=== PATIENT | female | born 1990 | race Caucasian/White ===

== ENCOUNTER 2017-09-25 17:58 | Inpatient (IN) | payer OTHER ==
[2017-09-25] MEDS ORDERED: Sodium Chloride 0.9% 10 ML Syringe FLUSH PRN ×2 (18:35→19:33)
[2017-09-25] MEDS ORDERED: fentaNYL 100 MCG/2 ML SDV IVPUSH ONE (18:35)
[2017-09-25] MEDS ORDERED: Lactated Ringers 1,000 ML IV SCH ×2 (19:15→20:15)
[2017-09-25] MEDS ORDERED: ePHEDrine/Normal Saline 50 MG/5 ML Syringe ONE (19:24)
[2017-09-25] MEDS ORDERED: Ropivacaine 100 ML ONE (19:27)
[2017-09-25] MEDS ORDERED: Acetaminophen 325 MG Tab PO PRN (19:33)
[2017-09-25] MEDS ORDERED: Ondansetron 4 MG Tab.DIS PO PRN (19:33)
--- NOTE | 2017-09-25 19:43 | PCM.LDHP ---
L&D History of Present Illness - General Date of Service: 09/25/17 (active labor) Admit Problem/Dx: Patient Status Order with Admit Dx/Problem 09/25/17 19:33 Patient Status [ADT] Routine Admission Diagnosis/Problem Admission Diagnosis/Problem Source of Information: Patient History Limitations: Reports: No Limitations - History of Present Illness Introduction:: This 27 yr old who is 39 5/7 weeks gestation presented in active labor. Early labor started this morning about 0620. Over the course of the day the contractions increased and became regular about 1700 this evening. She presented to the hospital at about 1810. 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 Baseline FHT 150 with accelerations. Cat one strip. Contractions every 4-3 minutes CE:3/60/0. Requesting pain medication and would like an epidural Timing/Duration: Reports: minutes: (3-4) Location, : Reports: Abdomen, Lower back Quality: Reports: Pressure Severity: Severe Pain Score: 8 Improves with: Reports: None Worsens with: Reports: None - Related Data Allergies/Adverse Reactions: Allergies Allergy/AdvReac Type Severity Reaction Status Date / Time No Known Allergies Allergy Verified 08/03/14 17:52 Home Medications: Home Meds Omeprazole [priLOSEC OTC] 20 mg PO ASDIRECTED PRN 08/03/14 [History] Ascorbic Acid/Ascorbate Sodium [Vit C-Georgiana Hips 500 mg Chew Tb] 1,000 mg PO DAILY 07/19/17 [History] Calcium Carbonate [Tums Ultra Strength] 1,000 mg PO PRN 07/19/17 [History] Klp635/FA/Omega3/Dha/Fish Oil [ Gummies] 2 tab PO DAILY 07/19/17 [ History] Past Medical History [employer] History: Reports: : 2 Para: 1 LMP (Approximate): (APOORVA 09/27/17) Musculoskeletal History: Reports: Fracture Social & Family History - Family History Cardiac: Reports: Afib - Tobacco Use Smoking Status *Q: Never Smoker Second Hand Smoke Exposure: No - Alcohol Use Days Per Week of Alcohol Use: 0 - Recreational Drug Use Recreational Drug Use: No H&P Review of Systems - Review of Systems: Review Of Systems: See Below General: Reports: No Symptoms HEENT: Reports: No Symptoms Pulmonary: Reports: No Symptoms Cardiovascular: Reports: No Symptoms Gastrointestinal: Reports: No Symptoms Genitourinary: Reports: No Symptoms Musculoskeletal: Reports: No Symptoms Skin: Reports: No Symptoms Psychiatric: Reports: No Symptoms Neurological: Reports: No Symptoms Hematologic/Lymphatic: Reports: No Symptoms Immunologic: Reports: No Symptoms L&D Exam - Exam Exam: See Below - Vital Signs Weight: 239 lb - OB Specific Contraction Intensity: Strong Movement: Active Heart Tones: Present Heart Tones per Min: 150 Heart Rate (FHR) Variability: Moderate (6-25 bmp) Presentation: Vertex Estimated Weight: 7-8 pounds - Larson Score Larson Score Cervix Position: Midposition Larson Score Consistency: Soft Larson Score Effacement: 51-70% Larson Score Dilation: 1-2 cm Larson Score Infant's Station: -1 ,0 Larson Score Total: 8 - Exam General: Alert, Oriented HEENT: PERRLA Neck: Supple Lungs: Normal Respiratory Effort Cardiovascular: Regular Rate, Regular Rhythm GI/Abdominal Exam: Soft, Non-Tender Genitourinary: Cervical dilitation, Enlarged uterus Extremities: Normal Inspection, No Pedal Edema Skin: Warm Neurological: Cranial Nerves Intact, Reflexes Equal Bilateral Psychiatric: Alert - Patient Data Lab Results Last 24 hrs: Laboratory Results - last 24 hr 09/25/17 09/25/17 Range/Units 18:12 19:09 WBC 12.5 H (4.5-11.0) K/uL RBC 4.77 (3.30-5.50) M/uL Hgb 12.8 (12.0-15.0) g/dL Hct 38.8 (36.0-48.0) % MCV 81 (80-98) fL MCH 27 (27-31) pg MCHC 33 (32-36) % Plt Count 263 (150-400) K/uL Neut % (Auto) 74 H (36-66) % Lymph % (Auto) 15 L (24-44) % [place] % (Auto) 10 H (2-6) % Eos % (Auto) 1 L (2-4) % Baso % (Auto) 0 (0-1) % Urine Color Yellow Urine Appearance Cloudy Urine pH 6.0 (4.5-8.0) Ur Specific [place] 1.020 (1.008-1.030) Urine Protein Negative (NEGATIVE) mg/dL Urine Glucose (UA) Normal (NEGATIVE) mg/dL Urine Ketones Negative (NEGATIVE) mg/dL Urine Occult Blood Negative (NEGATIVE) Urine Nitrite Negative (NEGATIVE) Urine Bilirubin Negative (NEGATIVE) Urine Urobilinogen 1 (NORMAL) mg/dL Ur Leukocyte Esterase Negative (NEGATIVE) Urine RBC 0-5 (0-5) Urine WBC 5-10 H (0-5) Ur Epithelial Cells Moderate Amorphous Sediment Not seen Urine Bacteria Many Urine Mucus Moderate Result Diagrams: 09/25/17 19:09 - Problem List (1) Active labor at term SNOMED Code(s): 13565569 ICD Code: [id number] - Status: Acute Current Visit: Yes (2) SNOMED Code(s): 69595113 ICD Code: Z34.90 - ENCNTR FOR SUPRVSN OF NORMAL , UNSP, UNSP TRIMESTER Status: Acute Current Visit: Yes Qualifiers: Weeks of gestation: 39 weeks Qualified Code(s): Z3A.39 - 39 weeks gestation of Problem List Initiated/Reviewed/Updated: Yes Orders Last 24hrs: Active Orders 24 hr Category Date Time Status Patient Status [ADT] Routine ADT 09/25/17 19:33 Ordered Antiembolic Devices [RC] .Routine Care 09/25/17 19:36 Ordered Communication Order [RC] ASDIRECTED Care 09/25/17 19:33 Ordered Heart Tones [RC] PER UNIT ROUTINE Care 09/25/17 19:33 Ordered May Shower [RC] ASDIRECTED Care 09/25/17 19:33 Ordered Notify Provider Vital Signs [RC] PRN Care 09/25/17 19:33 Ordered Notify Provider [RC] PRN Care 09/25/17 19:33 Ordered OB Check [OM.PC] Click to Edit Care 09/25/17 18:07 Ordered Peripheral IV Care [RC] . DIRECTED Care 09/25/17 18:36 Active VTE/DVT Education [RC] Click to Edit Care 09/25/17 19:36 Ordered Vital Signs [RC] PER UNIT ROUTINE Care 09/25/17 19:33 Ordered Regular Diet [DIET] Diet 09/26/17 Breakfast Ordered DRUG SCREEN, URINE [URCHEM] Routine Lab 09/25/17 18:37 Uncollected Acetaminophen [Tylenol] Med 09/25/17 19:33 Ordered 650 mg PO Q4H PRN Lactated Ringers [Ringers, Lactated] 1,000 ml Med 09/25/17 19:15 Active IV ASDIRECTED Ondansetron [Zofran ODT] Med 09/25/17 19:33 Ordered 4 mg PO Q4H PRN Oxytocin/Normal Saline [Pitocin in NS 20 Units/1,000 ML Med 09/25/17 19:37 Ordered ] 20 unit in 1,000 ml IV ONETIME Sodium Chloride 0.9% [Saline Flush] Med 09/25/17 18:35 Active 10 ml FLUSH ASDIRECTED PRN Sodium Chloride 0.9% [Saline Flush] Med 09/25/17 19:33 Ordered 10 ml FLUSH ASDIRECTED PRN DVT/VTE Prophylaxis Reflex [OM.PC] Routine Oth 09/25/17 19:33 Ordered Peripheral IV Insertion Adult [OM.PC] Routine Oth 09/25/17 18:35 Ordered Saline Lock Insert [OM.PC] Routine Oth 09/25/17 19:33 Ordered Resuscitation Status Routine Resus Stat 09/25/17 19:33 Ordered Medication Orders Acetaminophen (Tylenol) 650 mg PO Q4H PRN PRN Reason: Pain (Mild 1-3) and fever Lactated Ringer's (Ringers, Lactated) 1,000 mls @ 999 mls/hr IV ASDIRECTED JULIO Last Admin: 09/25/17 19:12 Dose: 999 mls/hr Oxytocin/Sodium Chloride (Pitocin In Ns 20 Units/1,000 Ml) 20 unit in 1,000 mls @ 999 mls/hr IV ONETIME ONE PRN Reason: Protocol Stop: 09/25/17 20:37 Ondansetron HCl (Zofran Odt) 4 mg PO Q4H PRN PRN Reason: Nausea/Vomiting Sodium Chloride (Saline Flush) 10 ml FLUSH ASDIRECTED PRN PRN Reason: Keep Vein Open Sodium Chloride (Saline Flush) 10 ml FLUSH ASDIRECTED PRN PRN Reason: Keep Vein Open Assessment/Plan Comment:: 27 yr old active labor at 39 5/7 weeks Plan: epidural for pain AROM Plan for vaginal delivery Lab: HIV neg Rubella immune RPR NR GBS neg HGB 12.8 PLT 263
--- NOTE | 2017-09-25 20:21 | PCM.PNLD ---
Labor Progress Note - VS & Meds Vital Signs: Last Vital Signs Temp 97.9 F 09/25/17 19:49 Pulse 91 09/25/17 20:07 Resp 16 09/25/17 20:07 BP 121/71 09/25/17 20:07 Pulse Ox 99 09/25/17 20:07 Active Medications: Current Medications Acetaminophen (Tylenol) 650 mg PO Q4H PRN PRN Reason: Pain (Mild 1-3) and fever Oxytocin/Sodium Chloride (Pitocin In Ns 20 Units/1,000 Ml) 20 unit in 1,000 mls @ 999 mls/hr IV ONETIME ONE PRN Reason: Protocol Stop: 09/25/17 20:37 Lactated Ringer's (Ringers, Lactated) 1,000 mls @ 100 mls/hr IV ASDIRECTED [facility] Ondansetron HCl (Zofran Odt) 4 mg PO Q4H PRN PRN Reason: Nausea/Vomiting Sodium Chloride (Saline Flush) 10 ml FLUSH ASDIRECTED PRN PRN Reason: Keep Vein Open Sodium Chloride (Saline Flush) 10 ml FLUSH ASDIRECTED PRN PRN Reason: Keep Vein Open Discontinued Medications Ephedrine Sulfate (Ephedrine In Ns) Confirm Administered Dose 50 mg .ROUTE .STK- MED ONE Stop: 09/25/17 19:25 Fentanyl (Sublimaze) 100 mcg IVPUSH ONETIME ONE Stop: 09/25/17 18:36 Last Admin: 09/25/17 19:08 Dose: 100 mcg Lactated Ringer's (Ringers, Lactated) 1,000 mls @ 999 mls/hr IV ASDIRECTED [facility] Last Admin: 09/25/17 19:12 Dose: 999 mls/hr Ropivacaine (Naropin 0.2%) Confirm Administered Dose 100 mls @ as directed .ROUTE .STK-MED ONE Stop: 09/25/17 19:28 - Uterine Contractions Uterine Monitoring Mode: External [place] Contraction Intensity: Strong Uterine Resting Tone: Soft - Monitoring Monitor Mode: Doppler/Auscultation Heart Rate (FHR) Baseline: 150 Heart Rate (FHR) Variability: Moderate (6-25 bmp) Accelerations: Present, 15x15 Decelerations: None Strip Review: Category I - Vaginal Exam Dilation (cm): 5 Effacement (Percent): 100 Station: 0 Cervical Position: Anterior Sterile Vaginal Exam Performed By: Nellie Tavarez Vaginal Exam Comment: SROM yellowish fluid - Labor Progress (Free Text) Labor Progress: epidural and yang in. Feeling much better, now to rest and plan for delivery this evening.
[2017-09-25] MEDS ORDERED: Ropivacaine 100 ML EPIDUR SCH (21:54)
[2017-09-25] MEDS ORDERED: ePHEDrine/Normal Saline 50 MG/5 ML Syringe IVPUSH PRN (21:54)
[2017-09-25] MEDS ORDERED: Naloxone 0.4 MG/ML SDV IVPUSH PRN (21:54)
[2017-09-25] MEDS ORDERED: Lanolin 100% Cream 40 GM Tube TOP PRN (23:31)
[2017-09-25] MEDS ORDERED: Ibuprofen 600 MG Tab PO PRN (23:31)
--- NOTE | 2017-09-25 23:43 | ANES ---
DATE OF SERVICE: 09/25/2017 TIME: 1930 hours. I was called by Nellie Tavarez to the Labor and Delivery Unit to evaluate Ms. Bauman for a labor epidural. She is 39 weeks and this is her 2nd baby and she is approximately 4 cm. The risks and benefits of the procedure were explained to the patient. She wished to proceed with labor epidural. She was placed in a sitting position. Her back was prepped x3 with Betadine, 1% lidocaine skin local was used. The epidural was placed at L3-4 using a 17- gauge Tuohy needle in loss of resistance technique. The epidural had very good feel throughout and the epidural space was easily identified. There was negative CSF, negative blood, and negative paresthesias noted. Therefore, a catheter was threaded to 14 cm at the skin. There was negative CSF, negative blood, and negative paresthesias noted in the catheter. A 1.5% lidocaine test dose with epinephrine was given and this test dose was negative. The catheter was then secured with Tegaderm and tape, and the patient was placed in a supine position. A 0.2% ropivacaine bolus of 12 mL was given and this bolus had very good results. Therefore, a 0.2% ropivacaine drip was started at 12 mL/h. Her vital signs remained stable throughout the procedure and nurse was with me the entire procedure. There were no anesthesia complications noted. We will continue to monitor her throughout her Labor and Delivery stay. Brian Bang CRNA /[id number]
--- NOTE | 2017-09-25 23:46 | PCM.DEL ---
L & D Note - General Info Date of Service: 09/25/17 (delivery) Mother's Due Date: 09/27/17 - Delivery Note Labor: Spontaneous Delivery Outcome: Livebirth Infant Delivery Method: Spontaneous Vaginal Delivery-Single Infant Delivery Mode: Spontaneous Presentation: Left Occiput Anterior (KIT) Nuchal Cord: None (had a true knot in the cord) Anesthesia Type: Epidural Amniotic Fluid Description: Meconium Stained Episiotomy Type: None Laceration: 1st Degree, Perineal, Periurethral Suture type: Chromic Suture size: 3-0 Placenta: Intact, Spontaneous, Meconium Stained Cord: 3 Vessels, True Knot Estimated Blood Loss: 200 Resuscitation Needed: No United: Bulb Syringe, Stimulated, Warmed, [place] Used Provider: Nellie Tavarez Score 1 min: 8 (one for color one for tone) Score 5 min: 9 (one for color) Second Stage Interventions: Reports: Second Nurse Reviewed Heart Tones, Pushing Effectively, Pushing, McRobert's Position, Pushing, Squat Bar Pulling on Sheet Delivery Comments (Free Text/Narrative):: This 27 year old G2 now P2 who is 39 5/7 weeks delivered a viable female infant at 2302 via over an intact perineum in KIT position. Mother pulled just over an hour making slow steady progress. Fluid was meconium stained. United was delivered on to mother's abdomen where she was dried and stimulated. She cried spontaneously and was bulb suctioned. Apgars of 8 and 9, color tone for the one minute and color for the 5 minute. Three vessel cord and a true knot in the cord. The placenta was expressed spontaneously intact. There was a small perineal tear that required three sutures and a periuretheral tear that was bleeding and required two sutures. No lacerations of the cervix, rectum or vagina were found. EBL 200cc Mother and baby to post and nursery in stable condition weight 9 pounds first stage [id number] Second stage 7413-5917 Third stage 9591-9192 - General Info Date of Service: 09/25/17 Admission Dx/Problem (Free Text): Patient Status Order with Admit Dx/Problem 09/25/17 19:33 Patient Status [ADT] Routine Admission Diagnosis/Problem Admission Diagnosis/Problem Functional Status: Reports: Pain Controlled - Review of Systems General: Reports: No Symptoms HEENT: Reports: No Symptoms Pulmonary: Reports: No Symptoms Cardiovascular: Reports: No Symptoms Gastrointestinal: Reports: No Symptoms Genitourinary: Reports: No Symptoms Musculoskeletal: Reports: No Symptoms Skin: Reports: No Symptoms Neurological: Reports: No Symptoms Psychiatric: Reports: No Symptoms - Patient Data Vitals - Most Recent: Last Vital Signs Temp 98.3 F 09/25/17 21:58 Pulse 100 09/25/17 21:58 Resp 18 09/25/17 21:58 BP 127/77 09/25/17 21:58 Pulse Ox 99 09/25/17 21:58 Weight - Most Recent: 246 lb Lab Results Last 24 Hours: Laboratory Results - last 24 hr 09/25/17 09/25/17 09/25/17 Range/Units 18:12 19:09 20:40 WBC 12.5 H (4.5-11.0) K/uL RBC 4.77 (3.30-5.50) M/uL Hgb 12.8 (12.0-15.0) g/dL Hct 38.8 (36.0-48.0) % MCV 81 (80-98) fL MCH 27 (27-31) pg MCHC 33 (32-36) % Plt Count 263 (150-400) K/uL Neut % (Auto) 74 H (36-66) % Lymph % (Auto) 15 L (24-44) % [place] % (Auto) 10 H (2-6) % Eos % (Auto) 1 L (2-4) % Baso % (Auto) 0 (0-1) % Urine Color Yellow Urine Appearance Cloudy Urine pH 6.0 (4.5-8.0) Ur Specific [place] 1.020 (1.008-1.030) Urine Protein Negative (NEGATIVE) mg/dL Urine Glucose (UA) Normal (NEGATIVE) mg/dL Urine Ketones Negative (NEGATIVE) mg/dL Urine Occult Blood Negative (NEGATIVE) Urine Nitrite Negative (NEGATIVE) Urine Bilirubin Negative (NEGATIVE) Urine Urobilinogen 1 (NORMAL) mg/dL Ur Leukocyte Esterase Negative (NEGATIVE) Urine RBC 0-5 (0-5) Urine WBC 5-10 H (0-5) Ur Epithelial Cells Moderate Amorphous Sediment Not seen Urine Bacteria Many Urine Mucus Moderate Urine Opiates Screen Negative (NEGATIVE) Ur Oxycodone Screen Negative (NEGATIVE) Urine Methadone Screen Negative (NEGATIVE) Ur Propoxyphene Screen Negative (NEGATIVE) Ur Barbiturates Screen Negative (NEGATIVE) Ur Tricyclics Screen Negative (NEGATIVE) Ur Phencyclidine Scrn Negative (NEGATIVE) Ur Amphetamine Screen Negative (NEGATIVE) U Methamphetamines Scrn Negative (NEGATIVE) Urine MDMA Screen Negative (NEGATIVE) U Benzodiazepines Scrn Negative (NEGATIVE) U Cocaine Metab Screen Negative (NEGATIVE) U Marijuana (THC) Screen Negative (NEGATIVE) Med Orders - Current: Current Medications Acetaminophen (Tylenol) 650 mg PO Q4H PRN PRN Reason: Pain (Mild 1-3) and fever Ephedrine Sulfate (Ephedrine In Ns) 5 - 10 mg IVPUSH ASDIRECTED PRN PRN Reason: SYSTOLIC BP LESS THAN 100 Lactated Ringer's (Ringers, Lactated) 1,000 mls @ 100 mls/hr IV ASDIRECTED JULIO Last Admin: 09/25/17 21:10 Dose: 100 mls/hr Ropivacaine (Naropin 0.2%) 100 mls @ 5 mls/hr EPIDUR ASDIRECTED JULIO; Titrate PRN Reason: Protocol Naloxone HCl (Narcan) 0.1 mg IVPUSH Q5M PRN PRN Reason: IF RESP RATE LESS THAN 6 Ondansetron HCl (Zofran Odt) 4 mg PO Q4H PRN PRN Reason: Nausea/Vomiting Sodium Chloride (Saline Flush) 10 ml FLUSH ASDIRECTED PRN PRN Reason: Keep Vein Open Sodium Chloride (Saline Flush) 10 ml FLUSH ASDIRECTED PRN PRN Reason: Keep Vein Open Discontinued Medications Ephedrine Sulfate (Ephedrine In Ns) Confirm Administered Dose 50 mg .ROUTE .STK- MED ONE Stop: 09/25/17 19:25 Last Admin: 09/25/17 21:20 Dose: Not Given Fentanyl (Sublimaze) 100 mcg IVPUSH ONETIME ONE Stop: 09/25/17 18:36 Last Admin: 09/25/17 19:08 Dose: 100 mcg Lactated Ringer's (Ringers, Lactated) 1,000 mls @ 999 mls/hr IV ASDIRECTED JULIO Last Admin: 09/25/17 19:12 Dose: 999 mls/hr Ropivacaine (Naropin 0.2%) Confirm Administered Dose 100 mls @ as directed .ROUTE .STK-MED ONE Stop: 09/25/17 19:28 Oxytocin/Sodium Chloride (Pitocin In Ns 20 Units/1,000 Ml) 20 unit in 1,000 mls @ 999 mls/hr IV ONETIME ONE PRN Reason: Protocol Stop: 09/25/17 20:37 - Exam General: Alert, Oriented HEENT: Pupils Equal Neck: Supple Lungs: Normal Respiratory Effort Cardiovascular: Regular Rate, Regular Rhythm GI/Abdominal Exam: Soft, Non-Tender (Female) Exam: Cervical Dilatation, Enlarged Uterus, Vaginal Bleeding Back Exam: Normal Inspection Extremities: Normal Inspection Skin: Warm Neurological: No New Focal Deficit Psy/Mental Status: Alert, Normal Affect, Normal Mood - Problem List & Annotations (1) Active labor at term SNOMED Code(s): 15084780 Code(s): LQM0362 - Status: Acute Current Visit: Yes (2) SNOMED Code(s): 35754845 Code(s): Z34.90 - ENCNTR FOR SUPRVSN OF NORMAL , UNSP, UNSP TRIMESTER Status: Acute Current Visit: Yes Qualifiers: Weeks of gestation: 39 weeks Qualified Code(s): Z3A.39 - 39 weeks gestation of (3) Normal (single liveborn) SNOMED Code(s): 76450787 Code(s): Z38.2 - SINGLE LIVEBORN , UNSPECIFIED TO PLACE OF Status: Acute Current Visit: Yes (4) Normal labor and delivery SNOMED Code(s): 80996199 Code(s): O80 - ENCOUNTER FOR FULL-TERM UNCOMPLICATED DELIVERY Status: Acute Current Visit: Yes - Problem List Review Problem List Initiated/Reviewed/Updated: Yes - My Orders Last 24 Hours: My Active Orders 09/25/17 18:07 OB Check [OM.PC] Click to Edit 09/25/17 18:35 Sodium Chloride 0.9% [Saline Flush] 10 ml FLUSH ASDIRECTED PRN Peripheral IV Insertion Adult [OM.PC] Routine 09/25/17 18:36 Peripheral IV Care [RC] . DIRECTED 09/25/17 19:33 Communication Order [RC] ASDIRECTED Heart Tones [RC] PER UNIT ROUTINE May Shower [RC] ASDIRECTED Notify Provider Vital Signs [RC] PRN Notify Provider [RC] PRN Vital Signs [RC] PER UNIT ROUTINE Acetaminophen [Tylenol] 650 mg PO Q4H PRN Ondansetron [Zofran ODT] 4 mg PO Q4H PRN Sodium Chloride 0.9% [Saline Flush] 10 ml FLUSH ASDIRECTED PRN DVT/VTE Prophylaxis Reflex [OM.PC] Routine Saline Lock Insert [OM.PC] Routine Resuscitation Status Routine 09/25/17 19:35 Urinary Catheter Insertion [Insert Urinary Catheter] [OM.PC] Q24H 09/25/17 19:36 Antiembolic Devices [RC] .Routine VTE/DVT Education [RC] Click to Edit 09/25/17 20:18 Urinary Catheter Assessment [RC] ASDIRECTED 09/25/17 23:31 Patient Status [ADT] Routine Up ad [place] [RC] ASDIRECTED Vital Signs [RC] PFP Ibuprofen [Motrin] 600 mg PO Q6H PRN Lanolin [Lansinoh HPA] 1 gm TOP ASDIRECTED PRN Assess Lochia [WOMSER] Per Unit Routine Assess Uterine Involution [WOMSER] Per Unit Routine 09/25/17 23:32 Ice Therapy [OM.PC] Per Unit Routine Peripheral IV Discontinue [OM.PC] Routine Sitz Bath [OM.PC] Per Unit Routine 09/26/17 05:11 CBC WITH AUTO DIFF [HEME] AM 09/26/17 Breakfast Regular Diet [DIET] - Assessment Assessment:: 08/25/18 27 year old without complications true knot of cord meconium fluid Rubella immune GBS negative HIV negative ABO O pos HGB on admission 12.8 - Plan Plan:: 27 yr old active labor at 39 5/7 weeks Plan: epidural for pain AROM Plan for vaginal delivery Lab: HIV neg Rubella immune RPR NR GBS neg HGB 12.8 PLT 263 08/25/18 Routine cares support Home 24-48 hours. CBC in am
[2017-09-26] MEDS ORDERED: Ibuprofen 200 MG Tab, 24 Tab Bulk Bottle PO PRN (07:53)
[2017-09-26] MEDS ORDERED: Acetaminophen 325 MG Tab, 50 Tab Bulk Bottle PO PRN (07:56)
--- NOTE | 2017-09-26 08:33 | PCM.PNPP ---
- General Info Date of Service: 09/26/17 (PPD 1) Admission Dx/Problem (Free Text): Patient Status Order with Admit Dx/Problem 09/25/17 19:33 Patient Status [ADT] Routine Admission Diagnosis/Problem Admission Diagnosis/Problem Functional Status: Reports: Pain Controlled - Review of Systems General: Reports: No Symptoms HEENT: Reports: No Symptoms Pulmonary: Reports: No Symptoms Cardiovascular: Reports: No Symptoms Gastrointestinal: Reports: No Symptoms Genitourinary: Reports: No Symptoms Musculoskeletal: Reports: No Symptoms Skin: Reports: No Symptoms Neurological: Reports: No Symptoms Psychiatric: Reports: No Symptoms - Patient Data Vital Signs - Most Recent: Last Vital Signs Temp 98.8 F 09/26/17 04:30 Pulse 98 09/26/17 04:30 Resp 16 09/26/17 04:30 BP 141/61 H 09/26/17 04:30 Pulse Ox 95 09/26/17 04:30 Weight - Most Recent: 246 lb I&O - Last 24 Hours: Intake & Output 09/25/17 09/26/17 09/26/17 22:59 06:59 14:59 Intake Total 2492 Balance 2492 Lab Results - Last 24 Hours: Laboratory Results - last 24 hr 09/25/17 09/25/17 09/25/17 Range/Units 18:12 19:09 20:40 WBC 12.5 H (4.5-11.0) K/uL RBC 4.77 (3.30-5.50) M/uL Hgb 12.8 (12.0-15.0) g/dL Hct 38.8 (36.0-48.0) % MCV 81 (80-98) fL MCH 27 (27-31) pg MCHC 33 (32-36) % Plt Count 263 (150-400) K/uL Neut % (Auto) 74 H (36-66) % Lymph % (Auto) 15 L (24-44) % [place] % (Auto) 10 H (2-6) % Eos % (Auto) 1 L (2-4) % Baso % (Auto) 0 (0-1) % Urine Color Yellow Urine Appearance Cloudy Urine pH 6.0 (4.5-8.0) Ur Specific [place] 1.020 (1.008-1.030) Urine Protein Negative (NEGATIVE) mg/dL Urine Glucose (UA) Normal (NEGATIVE) mg/dL Urine Ketones Negative (NEGATIVE) mg/dL Urine Occult Blood Negative (NEGATIVE) Urine Nitrite Negative (NEGATIVE) Urine Bilirubin Negative (NEGATIVE) Urine Urobilinogen 1 (NORMAL) mg/dL Ur Leukocyte Esterase Negative (NEGATIVE) Urine RBC 0-5 (0-5) Urine WBC 5-10 H (0-5) Ur Epithelial Cells Moderate Amorphous Sediment Not seen Urine Bacteria Many Urine Mucus Moderate Urine Opiates Screen Negative (NEGATIVE) Ur Oxycodone Screen Negative (NEGATIVE) Urine Methadone Screen Negative (NEGATIVE) Ur Propoxyphene Screen Negative (NEGATIVE) Ur Barbiturates Screen Negative (NEGATIVE) Ur Tricyclics Screen Negative (NEGATIVE) Ur Phencyclidine Scrn Negative (NEGATIVE) Ur Amphetamine Screen Negative (NEGATIVE) U Methamphetamines Scrn Negative (NEGATIVE) Urine MDMA Screen Negative (NEGATIVE) U Benzodiazepines Scrn Negative (NEGATIVE) U Cocaine Metab Screen Negative (NEGATIVE) U Marijuana (THC) Screen Negative (NEGATIVE) 09/26/17 Range/Units 05:45 WBC 15.6 H (4.5-11.0) K/uL RBC 4.45 (3.30-5.50) M/uL Hgb 11.8 L (12.0-15.0) g/dL Hct 36.4 (36.0-48.0) % MCV 82 (80-98) fL MCH 27 (27-31) pg MCHC 32 (32-36) % Plt Count 243 (150-400) K/uL Neut % (Auto) 76 H (36-66) % Lymph % (Auto) 14 L (24-44) % [place] % (Auto) 9 H (2-6) % Eos % (Auto) 0 L (2-4) % Baso % (Auto) 0 (0-1) % Urine Color Urine Appearance Urine pH (4.5-8.0) Ur Specific [place] (1.008-1.030) Urine Protein (NEGATIVE) mg/dL Urine Glucose (UA) (NEGATIVE) mg/dL Urine Ketones (NEGATIVE) mg/dL Urine Occult Blood (NEGATIVE) Urine Nitrite (NEGATIVE) Urine Bilirubin (NEGATIVE) Urine Urobilinogen (NORMAL) mg/dL Ur Leukocyte Esterase (NEGATIVE) Urine RBC (0-5) Urine WBC (0-5) Ur Epithelial Cells Amorphous Sediment Urine Bacteria Urine Mucus Urine Opiates Screen (NEGATIVE) Ur Oxycodone Screen (NEGATIVE) Urine Methadone Screen (NEGATIVE) Ur Propoxyphene Screen (NEGATIVE) Ur Barbiturates Screen (NEGATIVE) Ur Tricyclics Screen (NEGATIVE) Ur Phencyclidine Scrn (NEGATIVE) Ur Amphetamine Screen (NEGATIVE) U Methamphetamines Scrn (NEGATIVE) Urine MDMA Screen (NEGATIVE) U Benzodiazepines Scrn (NEGATIVE) U Cocaine Metab Screen (NEGATIVE) U Marijuana (THC) Screen (NEGATIVE) Med Orders - Current: Current Medications Acetaminophen (Tylenol Bulk Bottle) 650 mg PO Q4H PRN PRN Reason: Pain Emollient Ointment (Lansinoh Hpa) 1 gm TOP ASDIRECTED PRN PRN Reason: Sore Nipples Ibuprofen (Motrin Bulk Bottle) 200 mg PO Q6H PRN PRN Reason: Pain Ondansetron HCl (Zofran Odt) 4 mg PO Q4H PRN PRN Reason: Nausea/Vomiting Sodium Chloride (Saline Flush) 10 ml FLUSH ASDIRECTED PRN PRN Reason: Keep Vein Open Sodium Chloride (Saline Flush) 10 ml FLUSH ASDIRECTED PRN PRN Reason: Keep Vein Open Discontinued Medications Acetaminophen (Tylenol) 650 mg PO Q4H PRN PRN Reason: Pain (Mild 1-3) and fever Ephedrine Sulfate (Ephedrine In Ns) Confirm Administered Dose 50 mg .ROUTE .STK- MED ONE Stop: 09/25/17 19:25 Last Admin: 09/25/17 21:20 Dose: Not Given Ephedrine Sulfate (Ephedrine In Ns) 5 - 10 mg IVPUSH ASDIRECTED PRN PRN Reason: SYSTOLIC BP LESS THAN 100 Fentanyl (Sublimaze) 100 mcg IVPUSH ONETIME ONE Stop: 09/25/17 18:36 Last Admin: 09/25/17 19:08 Dose: 100 mcg Lactated Ringer's (Ringers, Lactated) 1,000 mls @ 999 mls/hr IV ASDIRECTED JULIO Last Admin: 09/25/17 19:12 Dose: 999 mls/hr Ropivacaine (Naropin 0.2%) Confirm Administered Dose 100 mls @ as directed .ROUTE .STK-MED ONE Stop: 09/25/17 19:28 Oxytocin/Sodium Chloride (Pitocin In Ns 20 Units/1,000 Ml) 20 unit in 1,000 mls @ 999 mls/hr IV ONETIME ONE PRN Reason: Protocol Stop: 09/25/17 20:37 Last Admin: 09/25/17 23:05 Dose: 999 ml/hr, 999 mls/hr Lactated Ringer's (Ringers, Lactated) 1,000 mls @ 100 mls/hr IV ASDIRECTED [facility] Last Admin: 09/25/17 21:10 Dose: 100 mls/hr Ropivacaine (Naropin 0.2%) 100 mls @ 5 mls/hr EPIDUR ASDIRECTED [facility]; Titrate PRN Reason: Protocol Last Admin: 09/25/17 19:50 Dose: 12 ml/hr, 12 mls/hr Ibuprofen (Motrin) 600 mg PO Q6H PRN PRN Reason: mild pain or fever Last Admin: 09/26/17 00:41 Dose: 600 mg Naloxone HCl (Narcan) 0.1 mg IVPUSH Q5M PRN PRN Reason: IF RESP RATE LESS THAN 6 - Infant Interaction Infant Disposition, : [place] in Room with Family Interaction: Holding Infant Infant Feeding: Breastfed ; Nursed Well Support Person: Significant Other - Recovery Exam Fundal Tone: Firm Fundal Level: 2 Fingerbreadths Above Umbilicus Fundal Placement: Midline Lochia Amount: Moderate Lochia Color: Rubra/Red Perineum Description: Edematous Episiotomy/Laceration: Approximated Bladder Status: Nonpalpable Urinary Elimination: Voided - Exam General: Alert, Oriented HEENT: Pupils Equal Neck: Supple Lungs: Clear to Auscultation, Normal Respiratory Effort Cardiovascular: Regular Rate, Regular Rhythm GI/Abdominal Exam: Normal Bowel Sounds, Soft, Non-Tender, No Organomegaly, No Distention, No Abnormal Bruit, No Mass, Pelvis Stable Extremities: Normal Inspection, Normal Range of Motion, Non-Tender, No Pedal Edema, Normal Capillary Refill Skin: Warm, Dry, Intact Wound/Incisions: Healing Well Neurological: No New Focal Deficit Psy/Mental Status: Alert, Normal Affect, Normal Mood - Problem List & Annotations (1) Active labor at term SNOMED Code(s): 71940081 Code(s): ECP7142 - Status: Acute Current Visit: Yes (2) SNOMED Code(s): 80911063 Code(s): Z34.90 - ENCNTR FOR SUPRVSN OF NORMAL , UNSP, UNSP TRIMESTER Status: Acute Current Visit: Yes Qualifiers: Weeks of gestation: 39 weeks Qualified Code(s): Z3A.39 - 39 weeks gestation of (3) Normal (single liveborn) SNOMED Code(s): 81009454 Code(s): Z38.2 - SINGLE LIVEBORN , UNSPECIFIED TO PLACE OF Status: Acute Current Visit: Yes (4) Normal labor and delivery SNOMED Code(s): 75315884 Code(s): O80 - ENCOUNTER FOR FULL-TERM UNCOMPLICATED DELIVERY Status: Acute Current Visit: Yes - Problem List Review Problem List Initiated/Reviewed/Updated: Yes - My Orders Last 24 Hours: My Active Orders 09/25/17 18:07 OB Check [OM.PC] Click To Edit 09/25/17 18:35 Sodium Chloride 0.9% [Saline Flush] 10 ml FLUSH ASDIRECTED PRN Peripheral IV Insertion Adult [OM.PC] Routine 09/25/17 18:36 Peripheral IV Care [RC] . DIRECTED 09/25/17 19:33 May Shower [RC] ASDIRECTED Notify Provider Vital Signs [RC] PRN Notify Provider [RC] PRN Vital Signs [RC] PER UNIT ROUTINE Ondansetron [Zofran ODT] 4 mg PO Q4H PRN Sodium Chloride 0.9% [Saline Flush] 10 ml FLUSH ASDIRECTED PRN DVT/VTE Prophylaxis Reflex [OM.PC] Routine Saline Lock Insert [OM.PC] Routine Resuscitation Status Routine 09/25/17 19:35 Urinary Catheter Insertion [Insert Urinary Catheter] [OM.PC] Q24H 09/25/17 19:36 Antiembolic Devices [RC] .Routine VTE/DVT Education [RC] Click to Edit 09/25/17 20:18 Urinary Catheter Assessment [RC] ASDIRECTED 09/25/17 23:31 Patient Status [ADT] Routine Up ad [place] [RC] ASDIRECTED Lanolin [Lansinoh HPA] 1 gm TOP ASDIRECTED PRN Assess Lochia [WOMSER] Per Unit Routine Assess Uterine Involution [WOMSER] Per Unit Routine 09/25/17 23:32 Ice Therapy [OM.PC] Per Unit Routine Peripheral IV Discontinue [OM.PC] Routine Sitz Bath [OM.PC] Per Unit Routine 09/26/17 07:53 Ibuprofen [Motrin Bulk Bottle] 200 mg PO Q6H PRN 09/26/17 07:56 Acetaminophen [Tylenol Bulk Bottle] 650 mg PO Q4H PRN 09/26/17 Breakfast Regular Diet [DIET] - Assessment Assessment:: 08/25/18 27 year old without complications true knot of cord meconium fluid Rubella immune GBS negative HIV negative ABO O pos HGB on admission 12.8 08/26/18 Doing well this morning, no problems Bleeding moderate, no clots well Mood good HGB 11.8 - Plan Plan:: 27 yr old active labor at 39 5/7 weeks Plan: epidural for pain AROM Plan for vaginal delivery Lab: HIV neg Rubella immune RPR NR GBS neg HGB 12.8 PLT 263 09/25/17 Routine cares support Home 24-48 hours. CBC in am 09/26/17 Continue routine cares Home tomorrow
[2017-09-26] MEDS ORDERED: Docusate Sodium 100 MG Cap PO PRN (10:12)
[2017-09-27 07:11] VITALS: BP 131/81
--- NOTE | 2017-09-27 08:30 | PCM.PNPP ---
- General Info Date of Service: 09/27/17 Functional Status: Reports: Pain Controlled - Review of Systems General: Reports: No Symptoms HEENT: Reports: No Symptoms Pulmonary: Reports: No Symptoms Cardiovascular: Reports: No Symptoms Gastrointestinal: Reports: No Symptoms Genitourinary: Reports: No Symptoms Musculoskeletal: Reports: No Symptoms Skin: Reports: No Symptoms Neurological: Reports: No Symptoms Psychiatric: Reports: No Symptoms - General Info Date of Service: 09/27/17 - Patient Data Vital Signs - Most Recent: Last Vital Signs Temp 36.9 C 09/27/17 07:09 Pulse 92 09/27/17 07:09 Resp 16 09/27/17 07:09 BP 131/81 09/27/17 07:09 Pulse Ox 99 09/27/17 07:09 Weight - Most Recent: 111.584 kg Med Orders - Current: Current Medications Acetaminophen (Tylenol Bulk Bottle) 650 mg PO Q4H PRN PRN Reason: Pain Last Admin: 09/26/17 08:39 Dose: 1 bottle Docusate Sodium (Colace) 100 mg PO DAILY PRN PRN Reason: Constipation Last Admin: 09/26/17 11:15 Dose: 100 mg Emollient Ointment (Lansinoh Hpa) 1 gm TOP ASDIRECTED PRN PRN Reason: Sore Nipples Last Admin: 09/26/17 08:40 Dose: 1 tube Ibuprofen (Motrin Bulk Bottle) 200 mg PO Q6H PRN PRN Reason: Pain Last Admin: 09/26/17 08:39 Dose: 1 bottle Ondansetron HCl (Zofran Odt) 4 mg PO Q4H PRN PRN Reason: Nausea/Vomiting Sodium Chloride (Saline Flush) 10 ml FLUSH ASDIRECTED PRN PRN Reason: Keep Vein Open Sodium Chloride (Saline Flush) 10 ml FLUSH ASDIRECTED PRN PRN Reason: Keep Vein Open Discontinued Medications Acetaminophen (Tylenol) 650 mg PO Q4H PRN PRN Reason: Pain (Mild 1-3) and fever Ephedrine Sulfate (Ephedrine In Ns) Confirm Administered Dose 50 mg .ROUTE .STK- MED ONE Stop: 09/25/17 19:25 Last Admin: 09/25/17 21:20 Dose: Not Given Ephedrine Sulfate (Ephedrine In Ns) 5 - 10 mg IVPUSH ASDIRECTED PRN PRN Reason: SYSTOLIC BP LESS THAN 100 Fentanyl (Sublimaze) 100 mcg IVPUSH ONETIME ONE Stop: 09/25/17 18:36 Last Admin: 09/25/17 19:08 Dose: 100 mcg Lactated Ringer's (Ringers, Lactated) 1,000 mls @ 999 mls/hr IV ASDIRECTED JULIO Last Admin: 09/25/17 19:12 Dose: 999 mls/hr Ropivacaine (Naropin 0.2%) Confirm Administered Dose 100 mls @ as directed .ROUTE .STK-MED ONE Stop: 09/25/17 19:28 Oxytocin/Sodium Chloride (Pitocin In Ns 20 Units/1,000 Ml) 20 unit in 1,000 mls @ 999 mls/hr IV ONETIME ONE PRN Reason: Protocol Stop: 09/25/17 20:37 Last Admin: 09/25/17 23:05 Dose: 999 ml/hr, 999 mls/hr Lactated Ringer's (Ringers, Lactated) 1,000 mls @ 100 mls/hr IV ASDIRECTED JULIO Last Admin: 09/25/17 21:10 Dose: 100 mls/hr Ropivacaine (Naropin 0.2%) 100 mls @ 5 mls/hr EPIDUR ASDIRECTED JULIO; Titrate PRN Reason: Protocol Last Admin: 09/25/17 19:50 Dose: 12 ml/hr, 12 mls/hr Ibuprofen (Motrin) 600 mg PO Q6H PRN PRN Reason: mild pain or fever Last Admin: 09/26/17 00:41 Dose: 600 mg Naloxone HCl (Narcan) 0.1 mg IVPUSH Q5M PRN PRN Reason: IF RESP RATE LESS THAN 6 - Interaction Infant Disposition, : [place] in Room with Family Interaction: Holding Infant Infant Feeding: Breastfed ; Nursed Well Support Person: Significant Other - Recovery Exam Fundal Tone: Firm Fundal Level: At Umbilicus Fundal Placement: Midline Lochia Amount: Small Lochia Color: Rubra/Red Perineum Description: Intact, Minimal Bruising/Swelling Episiotomy/Laceration: Approximated Bladder Status: Voiding Urinary Elimination: Voided - Exam General: Alert, Oriented HEENT: Pupils Equal Neck: Supple Lungs: Clear to Auscultation, Normal Respiratory Effort Cardiovascular: Regular Rate, Regular Rhythm GI/Abdominal Exam: Normal Bowel Sounds, Soft, Non-Tender, No Organomegaly, No Distention, No Abnormal Bruit, No Mass, Pelvis Stable Extremities: Normal Inspection, Normal Range of Motion, Non-Tender, No Pedal Edema, Normal Capillary Refill Skin: Warm, Dry, Intact Wound/Incisions: Healing Well Neurological: No New Focal Deficit Psy/Mental Status: Alert, Normal Affect, Normal Mood - Problem List & Annotations (1) Normal vaginal delivery SNOMED Code(s): 23222223 Code(s): O80 - ENCOUNTER FOR FULL-TERM UNCOMPLICATED DELIVERY Status: Acute Current Visit: Yes (2) SNOMED Code(s): 85006236 Code(s): Z34.90 - ENCNTR FOR SUPRVSN OF NORMAL , UNSP, UNSP TRIMESTER Status: Acute Current Visit: Yes Qualifiers: Weeks of gestation: 39 weeks Qualified Code(s): Z3A.39 - 39 weeks gestation of - Problem List Review Problem List Initiated/Reviewed/Updated: Yes - Assessment Assessment:: 08/25/18 27 year old without complications true knot of cord meconium fluid Rubella immune GBS negative HIV negative ABO O pos HGB on admission 12.8 08/26/18 Doing well this morning, no problems Bleeding moderate, no clots well Mood good HGB 11.8 09/27/2017 day two without complications Fundus firm and bleeding decreasing Perineum Minimal swelling Voiding and passing gas well-nipples sore, working with nurses and using lanolin - Plan Plan:: 27 yr old active labor at 39 5/7 weeks Plan: epidural for pain AROM Plan for vaginal delivery Lab: HIV neg Rubella immune RPR NR GBS neg HGB 12.8 PLT 263 09/25/17 Routine cares support Home 24-48 hours. CBC in am 09/26/17 Continue routine cares Home tomorrow 09/27/2017 Continue routine cares Continue to encourage Home today To see me in 6 weeks for visit
== END 2017-09-27 10:20 | disposition home or self-care (01) | DRG 775 ==
LOC: JP.OBCHECK 17:58 → JP.OB 18:35 → OBSVTOIN 23:02 → JP.OB 23:02 → JP.MS 09-26 01:47
PROVIDERS: ADMIT Nurse Practitioner Family; ATTEND Nurse Practitioner Family
PROC: 10E0XZZ Delivery of Products of Conception, External Approach (ICD-10-PCS; principal; 2017-09-25)
PROC: 0HQ9XZZ Repair Perineum Skin, External Approach (ICD-10-PCS; 2017-09-25)
PROC: 00HU33Z Insertion of Infusion Device into Spinal Canal, Percutaneous Approach (ICD-10-PCS; 2017-09-25)
DX: O69.2XX0 Labor and delivery complicated by other cord entanglement, with compression, not applicable or unspecified (principal); O77.0 Labor and delivery complicated by meconium in amniotic fluid; O70.0 First degree perineal laceration during delivery; Z3A.39 39 weeks gestation of pregnancy; Z37.0 Single live birth
CPT/HCPCS: 36415; 51702; 59409; 80305; 81001; 85025; 99211; A9270-GY; J2590; J2795; J3010; J7120